=== PATIENT | female | born 1975 | race Caucasian/White ===

== ENCOUNTER 2019-03-27 21:31 | Emergency (ER) | payer SELFPAY ==
[~2019-03-27] VITALS: Ht 152.4 cm; Wt 70.0 kg
[2019-03-27] MEDS ORDERED: METHYLPREDNISOLONE SOD SUCC 125 MG/2 ML VIAL IM ONE (22:30)
[2019-03-28 00:14] VITALS: BP 142/92
== END 2019-03-28 01:34 | disposition home or self-care (01) ==
LOC: ER 03-28 01:29
DX: J02.9 Acute pharyngitis, unspecified (principal)
CPT/HCPCS: 87070; 87430; 96372; 99283; J2930